=== PATIENT | male | born 2000 | race African-American/Black ===

== ENCOUNTER 2023-11-26 20:10 | Emergency (ER) | payer OTHER ==
[2023-11-26] MEDS ORDERED: Acetaminophen 500 MG TAB ONE (20:31)
[2023-11-26] MEDS ORDERED: Cyclobenzaprine 10 MG TAB ONE (20:31)
== END 2023-11-26 21:40 ==
LOC: NAV ERS 20:10
DX: S06.0X0A Concussion without loss of consciousness, initial encounter (principal); S05.12XA Contusion of eyeball and orbital tissues, left eye, initial encounter; Y04.0XXA Assault by unarmed brawl or fight, initial encounter
CPT/HCPCS: 70450; 70486; 71045; 72125